=== PATIENT | female | born 1945 | race Caucasian/White ===

== ENCOUNTER 2020-05-16 11:30 | Emergency (ER) | payer MEDICARE, OTHER ==
[2020-05-16 12:28] VITALS: BP 141/75
[2020-05-16] MEDS ORDERED: ACETAMINOPHEN 325 MG TABLET PO ONE (12:44)
--- NOTE | 2020-05-16 12:44 | ER Document Report ---
ED Medical Screen (RME) - General Stated Complaint: FALL/ ANKLE PAIN Time Seen by Provider: 05/16/20 12:38 Mode of Arrival: Wheelchair Information source: Patient Notes: HPI; 74-year-old female presents to the emergency room after a fall. Patient states she was coming out of a building when she missed a step falling forward hitting her face on concrete injuring her right shoulder and twisting her left ankle. She denies any loss of consciousness. Not on blood thinners. No medications for symptoms. Unable to walk secondary to pain. Denies chest pain, no dizziness prior to the fall. PE: Alert and oriented x3. PERRLA, EOMI no richardson signs, no raccoon eyes. Tenderness and swelling noted to the right cheek. C-spine nontender to palpation. Lungs: Clear to auscultation without rales, rhonchi, wheezes. Hea rt: Regular rate rhythm without murmurs, rubs, gallops. Swelling and tenderness noted to the left lateral malleus. Painful range of motion with flexion, extension, eversion and inversion to the left ankle. Tenderness to palpation over the right anterior shoulder with pain on external and internal rotation. I have greeted and performed a rapid initial assessment of this patient. A comprehensive ED assessment and evaluation of the patient, analysis of test results and completion of the medical decision making process will be conducted by additional ED providers. I have specifically instructed the patient or family members with the patient to immediately return to any nursing staff should anything change in the patient's condition or with their chief complaint. TRAVEL OUTSIDE OF THE [place] IN LAST 30 DAYS: No Physical Exam - Vital signs Vitals: Temp Pulse Resp BP Pulse Ox 99.2 F 71 18 141/75 H 97 05/16/20 12:26 05/16/20 12:26 05/16/20 12:26 05/16/20 12:26 05/16/20 12:26 Course - Vital Signs Vital signs: Temp Pulse Resp BP Pulse Ox 99.2 F 71 18 141/75 H 97 05/16/20 12:26 05/16/20 12:26 05/16/20 12:26 05/16/20 12:26 05/16/20 12:26
--- NOTE | 2020-05-16 13:26 | RADIOLOGY REPORT (SQ) ---
EXAM DESCRIPTION: ANKLE LEFT COMPLETE IMAGES COMPLETED DATE/TIME: 05/16/2020 12:03 pm REASON FOR STUDY: trauma COMPARISON: None. NUMBER OF VIEWS: Three views. TECHNIQUE: AP, lateral, and oblique radiographic images acquired of the left ankle. LIMITATIONS: None. FINDINGS: MINERALIZATION: Osteopenia. BONES: No acute fracture or cortical disruption. Normal ankle mortise alignment. Bones of the midfo ot are intact. JOINTS: Large ankle joint effusion. SOFT TISSUES: Soft tissue swelling at the lateral malleoli S and anterior ankle. OTHER: No other significant finding. IMPRESSION: Large ankle joint effusion with soft tissue swelling at the lateral malleolus. No acute fracture or dislocation. TECHNICAL DOCUMENTATION: JOB ID: [id number] 2010 [employer]- All Rights Reserved Reading location - IP/workstation name: [email or web address]
--- NOTE | 2020-05-16 13:36 | RADIOLOGY REPORT (SQ) ---
EXAM DESCRIPTION: SHOULDER RIGHT 2 OR MORE VIEWS IMAGES COMPLETED DATE/TIME: 05/16/2020 12:03 pm REASON FOR STUDY: trauma COMPARISON: None. NUMBER OF VIEWS: Three views. TECHNIQUE: Internal rotation, external rotation, and Y view images acquired of the right shoulder. LIMITATIONS: None. FINDINGS: MINERALIZATION: Osteopenia. BONES: No acute fracture or cortical disruption. Normal contour of the humeral head. The clavicle i s intact. JOINTS: Normal glenohumeral joint space alignment. 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 VISUALIZED LUNGS AND RIBS: No pneumothorax. No rib fracture. SOFT TISSUES: No radiopaque foreign body. OTHER: No other significant finding. IMPRESSION: No acute fracture or dislocation of the right shoulder. Mild osteopenia. TECHNICAL DOCUMENTATION: JOB ID: [id number] 2010 [employer]- All Rights Reserved Reading location - IP/workstation name: [email or web address]
--- NOTE | 2020-05-16 13:39 | RADIOLOGY REPORT (SQ) ---
EXAM DESCRIPTION: CT FACIAL AREA WITHOUT IMAGES COMPLETED DATE/TIME: 05/16/2020 12:17 pm REASON FOR STUDY: trauma, fell off stairs onto face COMPARISON: None. TECHNIQUE: Noncontrasted images through the facial bones and orbits windowed for bone and soft tissu e. Additional coronal and sagittal reconstructed images reviewed. All images stored on PACS. All CT scanners at this facility use dose modulation, iterative reconstruction, and/or weight based d osing when appropriate to reduce radiation dose to as low as reasonably achievable (ALARA). [facility]: Dose Right [facility]: CareDose [facility]: Dose Right [facility]: Teradose 4D [facility]: Smart [email or web address] RADIATION DOSE: CT Rad equipment meets quality standard of care and radiation dose reduction techniq ues were employed. CTDIvol: 30.4 mGy. DLP: 545 mGy-cm. mGy. LIMITATIONS: None. FINDINGS: FACIAL BONES: No fracture or bone lesion. ORBITS: Intact. No fracture. Symmetric intact globes and retroorbital soft tissues. PARANASAL SINUSES: Clear. No significant mucosal thickening, mass or fluid. No nasal polyps. Maxill crystal sinus outlets are patent. SOFT TISSUES: Soft tissue swelling right maxilla/cheek region. No subcutaneous foreign body or fluid collection. INFERIOR BRAIN: Limited view. No acute findings. OTHER: No other significant finding. IMPRESSION: Soft tissue swelling right cheek. No acute fracture. TECHNICAL DOCUMENTATION: JOB ID: [id number] Quality ID # [id number]: Final reports with documentation of one or more dose reduction techniques (e.g., Au tomated exposure control, adjustment of the mA and/or kV according to patient size, use of iterative reconstruction technique) 2010 [employer]- All Rights Reserved Reading location - IP/workstation name: [email or web address]
--- NOTE | 2020-05-16 13:40 | RADIOLOGY REPORT (SQ) ---
EXAM DESCRIPTION: CT HEAD WITHOUT IMAGES COMPLETED DATE/TIME: 05/16/2020 12:22 pm REASON FOR STUDY: trauma, fell off stairs onto face COMPARISON: None. TECHNIQUE: Axial images acquired through the brain without intravenous contrast. Images reviewed wi th bone, brain and subdural windows. Additional sagittal and coronal reconstructions were generated. Images stored on PACS. All CT scanners at this facility use dose modulation, iterative reconstruction, and/or weight based d osing when appropriate to reduce radiation dose to as low as reasonably achievable (ALARA). [facility]: Dose Right [facility]: CareDose [facility]: Dose Right [facility]: Teradose 4D [facility]: Smart [employer] RADIATION DOSE: CT Rad equipment meets quality standard of care and radiation dose reduction techniq ues were employed. CTDIvol: 53.2 mGy. DLP: 964 mGy-cm. mGy. LIMITATIONS: None. FINDINGS: VENTRICLES: Normal size and contour. CEREBRUM: No masses. No hemorrhage. No midline shift. No evidence for acute infarction. Normal gra y-white matter differentiation. Mild patchy periventricular and deep white matter hypodense attenuat ion consistent with mild chronic small vessel ischemic change. There is intracranial atherosclerosis . CEREBELLUM: No masses. No hemorrhage. No alteration of density. No evidence for acute infarction. EXTRAAXIAL SPACES: No fluid collections. No masses. ORBITS AND GLOBE: No intra- or extraconal masses. Normal contour of globe without masses. CALVARIUM: No fracture. PARANASAL SINUSES: No fluid or mucosal thickening. SOFT TISSUES: No mass or hematoma. OTHER: No other significant finding. IMPRESSION: No acute intracranial hemorrhage, mass, or evidence of acute territorial infarct. Mild chronic small vessel ischemic change and intracranial atherosclerosis. EVIDENCE OF ACUTE STROKE: NO. COMMENT: Quality ID # 436: Final reports with documentation of one or more dose reduction techniques (e.g., Automated exposure control, adjustment of the mA and/or kV according to patient size, use of iterative reconstruction technique) TECHNICAL DOCUMENTATION: JOB ID: [id number] [employer]- All Rights Reserved Reading location - IP/workstation name: [email or web address]
--- NOTE | 2020-05-16 13:41 | RADIOLOGY REPORT (SQ) ---
EXAM DESCRIPTION: CT CERVICAL SPINE WITHOUT IMAGES COMPLETED DATE/TIME: 05/16/2020 12:22 pm REASON FOR STUDY: trauma, fell off stairs onto face COMPARISON: None. TECHNIQUE: Axial images acquired through the cervical spine without intravenous contrast. Images re viewed with lung, soft tissue and bone windows. Reconstructed coronal and sagittal MPR images review ed. Images stored on PACS. All CT scanners at this facility use dose modulation, iterative reconstruction, and/or weight based d osing when appropriate to reduce radiation dose to as low as reasonably achievable (ALARA). [facility]: Dose Right [facility]: CareDose [facility]: Dose Right [facility]: Teradose 4D [facility]: Smart [employer] RADIATION DOSE: CT Rad equipment meets quality standard of care and radiation dose reduction techniq ues were employed. CTDIvol: 14.7 mGy. DLP: 258 mGy-cm. mGy. LIMITATIONS: None. FINDINGS: ALIGNMENT: Anatomic. MINERALIZATION: Normal. VERTEBRAL BODIES: No acute fracture or loss of vertebral body height. Small marginal osteophytes at the endplates. DISCS: Degenerative disc disease with loss of intervertebral disc height at multiple levels, most pro minent at C5-C6 and C6-C7. No significant disc bulge or spinal canal stenosis. FACETS, LATERAL MASSES, POSTERIOR ELEMENTS: No fractures. No dislocation. No acute findings. HARDWARE: None in the spine. VISUALIZED RIBS: No fractures. LUNG APICES AND SOFT TISSUES: No significant or acute findings. OTHER: No other significant finding. IMPRESSION: Mild degenerative disc disease and spondylosis. No acute fracture or dislocation. TECHNICAL DOCUMENTATION: JOB ID: [id number] Quality ID # [id number]: Final reports with documentation of one or more dose reduction techniques (e.g., Au tomated exposure control, adjustment of the mA and/or kV according to patient size, use of iterative reconstruction technique) 2010 [employer]- All Rights Reserved Reading location - IP/workstation name: [email or web address]
[2020-05-16] MEDS ORDERED: NAPROXEN 250 MG TABLET PO ONE (14:53)
--- NOTE | 2020-05-16 16:14 | ER Document Report ---
Entered by MELISSA BACA SCRIBE 05/16/20 1458 Acting as scribe for:AMY RICHARD MD ED Fall - General Chief Complaint: Fall Injury Stated Complaint: FALL/ ANKLE PAIN Time Seen by Provider: 05/16/20 12:38 Mode of Arrival: Wheelchair Information source: Patient Notes: This 74 year old female patient presents to the ED today for evaluation after a fall that occurred just prior to arrival. Patients states that she was walking out of a building when she missed a step and fell forward onto concrete. She reports pain to her right shoulder and left ankle and states that she can't bear weight. She states that she sustained an abrasion on her knee. Patient mentions a history of "balance problems" and multiple falls in the past, but states that she hasn't had a fall in over x6 months since starting a new medication that she doesn't know the name of. Tetanus is UTD. Denies LOC, neck pain, back pain, rib pain, or nausea. Denies use of blood thinners. Patient is visiting from [place], [place] with her . Patient states that she has used OTC Naprosyn for pain in the past. TRAVEL OUTSIDE OF THE [place] IN LAST 30 DAYS: No Past Medical History - General Information source: Patient - Social History Smoking Status: Never Smoker Cigarette use (# per day): No Chew tobacco use (# tins/day): No Smoking Education Provided: No Lives with: Spouse/Significant other Family History: Reviewed & Not Pertinent - Past Medical History Cardiac Medical History: Reports: Hx Hypertension Review of Systems - Review of Systems Constitutional: No symptoms reported EENT: No symptoms reported Cardiovascular: No symptoms reported Respiratory: No symptoms reported Gastrointestinal: See HPI Genitourinary: No symptoms reported Female Genitourinary: No symptoms reported Musculoskeletal: See HPI Skin: See HPI Hematologic/Lymphatic: No symptoms reported Neurological/Psychological: See HPI -: Yes All other systems reviewed and negative Physical Exam - Vital signs Vitals: Temp Pulse Resp BP Pulse Ox 99.2 F 71 18 141/75 H 97 05/16/20 12:26 05/16/20 12:26 05/16/20 12:26 05/16/20 12:26 05/16/20 12:26 - General General appearance: Alert In distress: None - HEENT Head: Normocephalic, Abrasions - Right cheek, Other - Mild facial soft tissue swelling over the the right zygoma orbital region. No open wound. No bruise flores significantly noted. Eyes: Normal Pupils: PERRL Neck: Normal, Supple - Respiratory Respiratory status: No respiratory distress Chest status: Nontender Breath sounds: Normal Chest palpation: Normal - Cardiovascular Rhythm: Regular Heart sounds: Normal auscultation, S1 appreciated, S2 appreciated Murmur: No Friction rub: No Gallop: None auscultated - Abdominal Inspection: Normal Distension: No distension Bowel sounds: Normal Tenderness: Nontender - Abdomen soft Organomegaly: No organomegaly - Back Back: Normal, Nontender. No: CVA tenderness - Extremities Shoulder: Tender - Tenderness to palpation of right anterolateral shoulder. No crepitus. No: Deformity Knee: Abrasion - Minor abrasion over right knee cap. No: Pain with ROM Ankle: Tender - Tenderness to palpation of left lateral ankle, Edema - Soft tissue swelling left lateral ankle. No: Ecchymosis, Limited ROM - Neurological Neuro grossly intact: Yes Orientation: AAOx4 [place] Coma Scale Eye Opening: Spontaneous Shaye Coma Scale Verbal: Oriented [place] Coma Scale Motor: Obeys Commands Shaye Coma Scale Total: 15 - Psychological Associated symptoms: Normal affect, Normal mood - Skin Skin Temperature: Warm Skin Moisture: Dry Skin Color: Normal Course - Re-evaluation Re-evalutation: 05/16/20 16:01 Patient has been provided Rajiv wrap and ankle stirrup splint 05/16/20 16:05 09.probable - Vital Signs Vital signs: Temp Pulse Resp BP Pulse Ox 99.2 F 71 18 141/75 H 97 05/16/20 12:26 05/16/20 12:26 05/16/20 12:26 05/16/20 12:26 05/16/20 12:26 05/16/20 16:01 Vital signs stable - Diagnostic Test Radiology reviewed: Image reviewed, Reports reviewed Radiology results interpreted by me: 05/16/20 15:12 Ankle X-Ray 05/16/20 12:42 IMPRESSION: Large ankle joint effusion with soft tissue swelling at the lateral malleolus. No acute fracture or dislocation. Facial Bones CT 05/16/20 12:42 IMPRESSION: Soft tissue swelling right cheek. No acute fracture. Head CT 05/16/20 12:42 IMPRESSION: No acute intracranial hemorrhage, mass, or evidence of acute territorial infarct. Mild chronic small vessel ischemic change and intracranial atherosclerosis. EVIDENCE OF ACUTE STROKE: NO. Shoulder X-Ray 05/16/20 12:42 IMPRESSION: No acute fracture or dislocation of the right shoulder. Mild osteopenia. Cervical Spine CT 05/16/20 12:52 IMPRESSION: Mild degenerative disc disease and spondylosis. No acute fracture or dislocation. Discharge - Discharge Clinical Impression: Accidental fall, Contusion of face, Sprain of right shoulder, Left ankle sprain with swelling Condition: Stable Disposition: HOME, SELF-CARE Additional Instructions: Contusion Your injury has resulted in a contusion -- a crushing of the deep tissues. No injury to important structures was detected during the physician's exam. Contusions vary in the amount of pain they cause, and in the length of time required for healing. Typically, the area will become bruised, and will remain painful to touch for two or three weeks. However, most patients are back to working and playing within a few days. After the initial period of rest and cold-packs, your symptoms (together with the doctor's recommendations) will determine how rapidly you can get back to full activity. Usually this means "do what feels okay, but don't do things that hurt." If re-examination was recommended, it's important to follow up as instructed. Call the doctor or return any time if pain increases, if swelling becomes severe, if you develop numbness or weakness in an injured extremity, or if any other alarming symptoms occur.Shoulder Injury You have injured your shoulder. This usually results from stretching or tearing of the tendons during trauma. Time and protection are required in order to heal properly. Many injuries are quite disabling, and should be taken seriously. Initial treatment includes cold packs and a sling to rest the shoulder. The physician has assessed the seriousness of your injury, and has outlined a treatment plan. Understand that this treatment may change, depending on how you progress. If a re-examination was recommended, it is important that you follow up as instructed. Some shoulder injuries (such as partial tear of the rotator cuff) are only suspected after you've failed to improve. Call us if there's severe pain, numbness, or loss of function. Ankle Exercise Program To restore the ankle to normal, it's important to strengthen the muscles that support it -- especially those that lift the foot upward. Good muscle tone will keep stress off the injury while it heals. EARLY - Once the doctor allows you to walk on the ankle, you can begin. Lean your back against a wall. Standing on your heels, lift the balls of both feet up, hold a second, then back down. Work up to 100 repetitions. Next, using the wall for balance, stand on one foot. Lift the heel up, then down. Work up to 100 repetitions for each foot. BALANCE TRAINING - To retrain the ankle to react to "tipping", stand on one foot for two minutes. Go from flat-footed to standing on the toes and back again slowly. Repeat with the other foot. LATER - When your ankle has regained full motion and you're walking pain- free, begin exercise against resistance. In a sitting position, pull the top of the foot towards you against resistance 20 times. Use either elastic material or a weight attached to the toes. Swing the knee so the foot is to the side of the body, and repeat. Rajiv Wrap A compression dressing (rajiv wrap) has been placed. This helps hold the area still. It limits swelling and internal bleeding. The wrap should be comfortably snug -- not tight. You should feel a sense of pressure, but not severe pain under the wrap. Unless the physician tells you otherwise, you can adjust the wrap for comfort. If the wrap causes symptoms suggesting it's too tight -- uncomfortable pressure, swelling or discoloration beyond the wrap, numbness, or severe pain -- you must loosen the wrap. If these symptoms don't resolve promptly, return for re-evaluation. Ankle Stirrup Splint You are to use an ankle brace called a stirrup splint. This type of brace allows you to place greater stresses on the ankle without risk of re-injury, and is often used for more severe ankle injuries such as avulsion fractures and ligament ruptures. The splint can be worn over a sock or tape. For proper support, wear the splint with a shoe over it. It's important that the splint fit properly. Adjust the heel tension, if needed. If your splint has air bladders, peel back the bottom of each air bladder, then move the Velcro attachment of the heel strap up or down. Air bladder pressure can be adjusted by pulling up the valve at the top, threading the air tube down into the main bladder, then blowing air into the bladder or squeezing it out. The two sides of the stirrup can be moved forward or back on your ankle by changing the attachment of the main straps. If you are unable to use the ankle comfortably in the splint, return for re-evaluation. Prescriptions: Naproxen 375 mg PO BID PRN #40 tablet.dr EDOUARD Reason: pain or swelling I personally performed the services described in the documentation, reviewed and edited the documentation which was dictated to the scribe in my presence, and it accurately records my words and actions.
== END 2020-05-16 16:41 | disposition home or self-care (01) ==
LOC: ER 11:30
DX: S00.83XA Contusion of other part of head, initial encounter (principal); S43.401A Unspecified sprain of right shoulder joint, initial encounter; S93.402A Sprain of unspecified ligament of left ankle, initial encounter; S80.219A Abrasion, unspecified knee, initial encounter; R22.0 Localized swelling, mass and lump, head; M25.511 Pain in right shoulder; M25.572 Pain in left ankle and joints of left foot; M85.811 Other specified disorders of bone density and structure, right shoulder; W10.9XXA Fall (on) (from) unspecified stairs and steps, initial encounter; Y92.89 Other specified places as the place of occurrence of the external cause; I10 Essential (primary) hypertension; Z91.81 History of falling
CPT/HCPCS: 99284; 73610; 73030; 70450; 70486; 72125; A9270 ×2